=== PATIENT | male | born 1995 | race Caucasian/White ===

== ENCOUNTER 2018-09-05 12:09 | Emergency (ER) | payer SELFPAY ==
[2018-09-05] MEDS: HYDROCODONE/APAP (5/325) TAB PO (12:51)
[2018-09-05] MEDS: ONDANSETRON (ODT) 4 MG TAB ODT (12:51)
== END 2018-09-05 13:15 | disposition home or self-care (01) ==
LOC: FTE 13:15
DX: K08.9 Disorder of teeth and supporting structures, unspecified (principal); F17.210 Nicotine dependence, cigarettes, uncomplicated
CPT/HCPCS: 99283

== ENCOUNTER 2018-09-28 16:24 | Emergency (ER) | payer SELFPAY | END 2018-09-28 18:53 | disposition home or self-care (01) | LOC: FTE 18:53 | DX: R42 Dizziness and giddiness (principal); F17.210 Nicotine dependence, cigarettes, uncomplicated; R11.2 Nausea with vomiting, unspecified | CPT/HCPCS: 76700; 99284-25 ==